=== PATIENT | male | born 1975 | race Caucasian/White ===

== ENCOUNTER 2023-04-23 02:53 | Inpatient (IN) | payer SELFPAY ==
[2023-04-23] MEDS ORDERED: LORazepam 2 MG/ML SYR.(CARPUJECT) ONE ×3 (03:27→11:46)
[2023-04-23] MEDS ORDERED: Haloperidol Lactate 5 MG/ML VIAL ONE (03:50)
[2023-04-23 03:54] LABS: #Monocytes 1.4 thou/uL (0.11-0.59); #Neutrophils 10.5 thou/uL (1.40-6.50); %Basophils 0.2 % (0.0-1.0); %Eosinophils 0.3 % (0.0-10.0); %Lymphocytes 4.7 % (21.0-51.0); %Monocytes 11.1 % (0.0-10.0); %Neutrophils 82.5 % (42.0-75.0); Hematocrit 40.3 % (42.0-52.0); Hemoglobin 15.1 g/dL (14.0-18.0); Mean Corpuscular HGB CONC 37.5 g/dL (32.0-36.0); Mean Corpuscular Hemoglobin 32.7 pg (27.0-31.0); Mean Corpuscular Volume 87.2 fl (78.0-98.0); Platelet Count 239 10x3/uL (130-400); RBC Distribution Width 12.7 % (11.5-14.5); Red Blood Cell (RBC) Count 4.62 mill/uL (4.70-6.10); White Blood Cell (WBC) Count 12.8 10x3/uL (4.8-10.8)
[2023-04-23] MEDS ORDERED: Aspirin Chewable 81 MG TAB ONE (05:10)
[2023-04-23 05:14] LABS: Bacteria/HPF None Seen HPF (None Seen); Bilirubin Negative (Negative); Blood, Urine Negative (Negative); CAUTI Indications for Culture Alt mental st,lethar; Clarity Clear (Clear); Glucose, Urine (Dipstick) Normal (Negative); Ketone, Urine 10 mg/dL (Negative); Leukocyte Negative Leu/uL (Negative); Nitrite Negative (Negative); Protein, Urine (Dipstick) Negative (Neg-Trace); RBC/HPF 0-3 HPF (0-3); Squamous Epithelial None Seen HPF (0-3); Urobilinogen Normal mg/dL (Less than 2); WBC/HPF 0-3 HPF (0-3); pH, Urine 5.5 (5.0-9.0)
[2023-04-23 05:21] LABS: Amphetamine Not Detected (NotDetected); Barbiturates Screen Not Detected (NotDetected); Benzodiazepine Screen Not Detected (NotDetected); Cocaine Metabolite Screen Not Detected (NotDetected); Methadone Not Detected (NotDetected); Methamphetamine Not Detected (NotDetected); Opiate Screen Not Detected (NotDetected); Oxycodone Screen Not Detected (NotDetected); Phencyclidine (PCP) Not Detected (NotDetected); THC/Cannabinoid Screen Not Detected (NotDetected); Tricyclic Screen Not Detected (NotDetected)
[2023-04-23 05:24] LABS: Urine Culture Reflex No No
[2023-04-23 05:29] LABS: Albumin 4.2 g/dL (3.5-5.0)
[2023-04-23 05:30] LABS: Chloride 77 mmol/L (98-107); Potassium 3.2 mmol/L (3.5-5.1); Sodium 120 mmol/L (136-145)
[2023-04-23 05:31] LABS: Calcium 9.5 mg/dL (7.8-10.44)
[2023-04-23 05:32] LABS: Globulin 3.3 g/dL (2.4-3.5); Glucose 66 mg/dL (70-105); Protein, Total 7.5 g/dL (6.0-8.3)
[2023-04-23 05:33] LABS: Anion Gap 26 mmol/L (10-20); Carbon Dioxide 20 mmol/L (22-29)
[2023-04-23 05:34] LABS: Bilirubin, Total 0.7 mg/dL (0.2-1.2)
[2023-04-23 05:35] LABS: Alkaline Phosphatase 49 U/L (40-110); Calc. Creatinine Clearance 0 mL/min (70-130); Estimated GFR 51
[2023-04-23 05:36] LABS: BUN (Urea Nitrogen) 26 mg/dL (8.9-20.6)
[2023-04-23 05:37] LABS: AST (SGOT) 33 U/L (5-34)
[2023-04-23 05:38] LABS: ALT (SGPT) 36 U/L (8-55); CK (CPK) 488 U/L (30-200)
[2023-04-23 05:40] LABS: Alcohol Less than 10.0 mg/dL (Less than 10)
[2023-04-23 05:43] LABS: Acetaminophen Less than 10 mcg/mL (10.0-30.0); Salicylate Less than 8.0 mg/dL (15.0-30.0)
[2023-04-23 06:48] LABS: CKMB 3.6 ng/mL (0-6.6)
[2023-04-23] MEDS ORDERED: Boostrix 0.5 ML (Tdap) VIAL (>/=7 yrs of age) ONE (06:54)
[2023-04-23] MEDS ORDERED: Magnesium 2 GM/50 ML BAG (IN WATER) ONE (06:54)
[2023-04-23] MEDS ORDERED: Potassium Chloride 20 MEQ TAB ONE (06:54)
[2023-04-23] MEDS ORDERED: Ondansetron PF 4 MG/2 ML Vial IVP PRN (08:24)
[2023-04-23 08:39] LABS: Troponin I 0.191 ng/mL (< 0.028)
[2023-04-23] MEDS ORDERED: Sodium Chloride 0.9% 1,000 ML IV SCH (09:45)
[2023-04-23 10:48] LABS: Anion Gap 22 mmol/L (10-20); BUN (Urea Nitrogen) 23 mg/dL (8.9-20.6); BUN (Urea Nitrogen) 24 mg/dL (8.9-20.6); Calc. Creatinine Clearance 45 mL/min (70-130); Calc. Creatinine Clearance 47 mL/min (70-130); Calcium 9.2 mg/dL (7.8-10.44); Calcium 9.5 mg/dL (7.8-10.44); Carbon Dioxide 20 mmol/L (22-29); Carbon Dioxide 23 mmol/L (22-29); Chloride 78 mmol/L (98-107); Chloride 79 mmol/L (98-107); Estimated GFR 60; Estimated GFR 63; Glucose 70 mg/dL (70-105); Glucose 72 mg/dL (70-105); Magnesium 2.9 mg/dL (1.6-2.6); Phosphorus 2.5 mg/dL (2.3-4.7); Potassium 2.8 mmol/L (3.5-5.1); Potassium 2.9 mmol/L (3.5-5.1); Sodium 120 mmol/L (136-145)
[2023-04-23 11:08] LABS: Sodium 118 mmol/L (136-145); Troponin I 0.206 ng/mL (< 0.028)
[2023-04-23 11:15] LABS: Creatinine, Urine 84.03 mg/dL (63-166); Sodium, Urine Less than 20 mmol/L (Not Available)
[2023-04-23] MEDS: Lorazepam 2 MG/ML VIAL SLOW IVP PRN (11:45)
[2023-04-23] MEDS ORDERED: Potassium Chloride 20 MEQ TAB PO SCH ×2 (13:00→16:00)
[2023-04-23 15:10] LABS: Anion Gap 24 mmol/L (10-20); BUN (Urea Nitrogen) 23 mg/dL (8.9-20.6); Calc. Creatinine Clearance 53 mL/min (70-130); Calcium 9.2 mg/dL (7.8-10.44); Carbon Dioxide 15 mmol/L (22-29); Chloride 83 mmol/L (98-107); Estimated GFR 72; Glucose 61 mg/dL (70-105); Potassium 3.4 mmol/L (3.5-5.1)
[2023-04-23 15:23] LABS: Sodium 119 mmol/L (136-145)
[2023-04-23] MEDS ORDERED: Sodium Chloride 3% 100 ML IVPB SCH (15:45)
[2023-04-23 20:06] LABS: Chloride 86 mmol/L (98-107); Potassium 3.3 mmol/L (3.5-5.1); Sodium 124 mmol/L (136-145)
[2023-04-23 20:07] LABS: Calcium 9.4 mg/dL (7.8-10.44); Glucose 60 mg/dL (70-105)
[2023-04-23 20:09] LABS: Anion Gap 26 mmol/L (10-20); Carbon Dioxide 15 mmol/L (22-29)
[2023-04-23 20:11] LABS: BUN (Urea Nitrogen) 23 mg/dL (8.9-20.6); Calc. Creatinine Clearance 57 mL/min (70-130); Estimated GFR 80
[2023-04-23 20:13] LABS: CK (CPK) 874 U/L (30-200)
[2023-04-23] MEDS: Potassium Chloride 40 MEQ in Dextrose 5%-Lactated Ringers 1,000 ML IV SCH (23:29)
[2023-04-24 00:26] VITALS: BMI 17.1
[2023-04-24 00:53] LABS: Anion Gap 22 mmol/L (10-20); BUN (Urea Nitrogen) 23 mg/dL (8.9-20.6); Calc. Creatinine Clearance 60 mL/min (70-130); Calcium 9.7 mg/dL (7.8-10.44); Carbon Dioxide 19 mmol/L (22-29); Chloride 87 mmol/L (98-107); Estimated GFR 85; Glucose 69 mg/dL (70-105); Sodium 124 mmol/L (136-145)
[2023-04-24] MEDS: Lorazepam 2 MG/ML VIAL SLOW IVP PRN ×2 (00:55→06:42)
[2023-04-24] MEDS: Potassium Chloride 40 MEQ in Dextrose 5%-Lactated Ringers 1,000 ML IV SCH ×2 (06:01→12:36)
[2023-04-24 07:17] LABS: #Monocytes 1.2 thou/uL (0.11-0.59); #Neutrophils 7.9 thou/uL (1.40-6.50); %Basophils 0.3 % (0.0-1.0); %Eosinophils 0.3 % (0.0-10.0); %Lymphocytes 6.9 % (21.0-51.0); Hematocrit 39.5 % (42.0-52.0); Mean Corpuscular HGB CONC 35.4 g/dL (32.0-36.0); Mean Corpuscular Hemoglobin 32.9 pg (27.0-31.0); Mean Corpuscular Volume 92.7 fl (78.0-98.0); Mean Platelet Volume 9.9 fL (7.4-10.4); Platelet Count 194 10x3/uL (130-400); RBC Distribution Width 13.2 % (11.5-14.5); Red Blood Cell (RBC) Count 4.26 mill/uL (4.70-6.10); White Blood Cell (WBC) Count 9.9 10x3/uL (4.8-10.8)
[2023-04-24 07:40] LABS: Anion Gap 21 mmol/L (10-20); BUN (Urea Nitrogen) 21 mg/dL (8.9-20.6); CK (CPK) 760 U/L (30-200); Calc. Creatinine Clearance 73 mL/min (70-130); Calcium 8.9 mg/dL (7.8-10.44); Carbon Dioxide 19 mmol/L (22-29); Chloride 91 mmol/L (98-107); Estimated GFR 105; Glucose 95 mg/dL (70-105); Potassium 3.7 mmol/L (3.5-5.1); Sodium 127 mmol/L (136-145)
[2023-04-24 10:23] LABS: Critical Call Chem Troponin I RESULT DECREASING; Troponin I 0.082 ng/mL (< 0.028)
[2023-04-24] MEDS ORDERED: Amlodipine 5 MG TAB PO SCH (17:00)
[2023-04-24 18:07] LABS: Anion Gap 14 mmol/L (10-20); BUN (Urea Nitrogen) 16 mg/dL (8.9-20.6); CK (CPK) 720 U/L (30-200); Calc. Creatinine Clearance 77 mL/min (70-130); Calcium 8.9 mg/dL (7.8-10.44); Carbon Dioxide 21 mmol/L (22-29); Chloride 95 mmol/L (98-107); Estimated GFR 107; Glucose 103 mg/dL (70-105); Potassium 3.9 mmol/L (3.5-5.1); Sodium 126 mmol/L (136-145)
[2023-04-25] MEDS: Potassium Chloride 40 MEQ in Dextrose 5%-Lactated Ringers 1,000 ML IV SCH ×4 (02:07→23:57)
[2023-04-25] MEDS: Metoprolol Tartrate 5 MG/5 ML VIAL IVP SCH ×2 (02:21→02:42)
[2023-04-25] MEDS: Amlodipine 5 MG TAB PO SCH (09:03)
[2023-04-25 12:36] LABS: Albumin 3.5 g/dL (3.5-5.0); Anion Gap 18 mmol/L (10-20); BUN (Urea Nitrogen) 10 mg/dL (8.9-20.6); BUN/Creatinine Ratio 13.33; CK (CPK) 509 U/L (30-200); Calc. Creatinine Clearance 86 mL/min (70-130); Calcium 9.3 mg/dL (7.8-10.44); Carbon Dioxide 21 mmol/L (22-29); Chloride 95 mmol/L (98-107); Estimated GFR 111; Glucose 94 mg/dL (70-105); Magnesium 1.6 mg/dL (1.6-2.6); Phosphorus 2.5 mg/dL (2.3-4.7); Potassium 4.9 mmol/L (3.5-5.1); Sodium 129 mmol/L (136-145)
[2023-04-25] MEDS ORDERED: Sodium Chloride 0.9% 1,000 ML IV SCH (17:30)
[2023-04-25] MEDS: Lorazepam 2 MG/ML VIAL SLOW IVP PRN (19:59)
[2023-04-25] MEDS ORDERED: Sodium Bicarbonate Tab 325 MG TAB PO SCH (21:00)
[2023-04-25] MEDS: Magnesium Oxide 400 MG TAB PO SCH (21:36)
[2023-04-26 04:45] LABS: Albumin 3.1 g/dL (3.5-5.0); Anion Gap 15 mmol/L (10-20); BUN (Urea Nitrogen) 8 mg/dL (8.9-20.6); BUN/Creatinine Ratio 10.81; CK (CPK) 395 U/L (30-200); Calc. Creatinine Clearance 87 mL/min (70-130); Calcium 9.1 mg/dL (7.8-10.44); Carbon Dioxide 21 mmol/L (22-29); Chloride 96 mmol/L (98-107); Estimated GFR 111; Glucose 89 mg/dL (70-105); Magnesium 1.3 mg/dL (1.6-2.6); Phosphorus 2.3 mg/dL (2.3-4.7); Potassium 3.9 mmol/L (3.5-5.1); Sodium 128 mmol/L (136-145)
[2023-04-26] MEDS ORDERED: Magnesium Sulfate In Water 4 GM in Premix Bag 1 BAG IVPB SCH (09:00)
[2023-04-26] MEDS: Potassium Chloride 40 MEQ in Dextrose 5%-Lactated Ringers 1,000 ML IV SCH ×4 (11:27→21:18)
[2023-04-26] MEDS: Amlodipine 5 MG TAB PO SCH (11:31)
[2023-04-26] MEDS: Lorazepam 2 MG/ML VIAL SLOW IVP PRN (11:33)
[2023-04-26] MEDS: Magnesium Oxide 400 MG TAB PO SCH ×2 (11:33→21:14)
[2023-04-26] MEDS: Sodium Bicarbonate Tab 325 MG TAB PO SCH ×3 (11:51→21:14)
[2023-04-26] MEDS ORDERED: OLANZapine 5 MG TAB PO SCH (14:15)
[2023-04-26] MEDS: Acetaminophen 325 MG TAB PO PRN ×2 (15:47→21:17)
[2023-04-26 23:07] LABS: Troponin I 0.016 ng/mL (< 0.028)
[2023-04-27 05:06] LABS: #Basophils 0.1 thou/uL (0.0-0.2); #Eosinphils 0.2 thou/uL (0.0-0.7); #Neutrophils 10.7 thou/uL (1.40-6.50); %Basophils 0.5 % (0.0-1.0); %Eosinophils 1.3 % (0.0-10.0); %Lymphocytes 6.6 % (21.0-51.0); %Monocytes 7.6 % (0.0-10.0); %Neutrophils 83.5 % (42.0-75.0); Hematocrit 32.3 % (42.0-52.0); Hemoglobin 11.3 g/dL (14.0-18.0); Mean Corpuscular Hemoglobin 33.1 pg (27.0-31.0); Mean Corpuscular Volume 94.7 fl (78.0-98.0); Mean Platelet Volume 10.3 fL (7.4-10.4); Platelet Count 170 10x3/uL (130-400); RBC Distribution Width 13.9 % (11.5-14.5); Red Blood Cell (RBC) Count 3.41 mill/uL (4.70-6.10); White Blood Cell (WBC) Count 12.8 10x3/uL (4.8-10.8)
[2023-04-27 05:32] LABS: Anion Gap 16 mmol/L (10-20); BUN (Urea Nitrogen) 7 mg/dL (8.9-20.6); CK (CPK) 362 U/L (30-200); Calc. Creatinine Clearance 88 mL/min (70-130); Calcium 8.7 mg/dL (7.8-10.44); Carbon Dioxide 19 mmol/L (22-29); Chloride 99 mmol/L (98-107); Estimated GFR 112; Glucose 83 mg/dL (70-105); Potassium 4.9 mmol/L (3.5-5.1); Sodium 129 mmol/L (136-145)
[2023-04-27] MEDS ORDERED: Lactated Ringer's 1,000 ML IV SCH (06:30)
[2023-04-27] MEDS: Sodium Bicarbonate Tab 325 MG TAB PO SCH ×3 (08:37→20:33)
[2023-04-27] MEDS: Amlodipine 5 MG TAB PO SCH (08:38)
[2023-04-27] MEDS: Magnesium Oxide 400 MG TAB PO SCH ×2 (08:38→20:33)
[2023-04-27] MEDS: OLANZapine 5 MG TAB PO SCH (08:38)
[2023-04-27] MEDS: Acetaminophen 325 MG TAB PO PRN (08:40)
[2023-04-27] MEDS ORDERED: Polyethylene Glycol 3350 17 GM Packet PO SCH (18:00)
[2023-04-27 18:03] LABS: Magnesium 1.8 mg/dL (1.6-2.6)
[2023-04-27] MEDS: Nicotine 14 MG PATCH TD SCH (18:28)
[2023-04-27] MEDS: Senokot S 8.6-50 MG TAB PO SCH (20:33)
[2023-04-28 04:53] LABS: #Basophils 0.1 thou/uL (0.0-0.2); #Eosinphils 0.1 thou/uL (0.0-0.7); #Monocytes 0.9 thou/uL (0.11-0.59); %Basophils 0.8 % (0.0-1.0); %Eosinophils 1.5 % (0.0-10.0); %Lymphocytes 10.3 % (21.0-51.0); %Monocytes 10.1 % (0.0-10.0); %Neutrophils 76.9 % (42.0-75.0); Hematocrit 34.2 % (42.0-52.0); Hemoglobin 11.6 g/dL (14.0-18.0); Mean Corpuscular HGB CONC 33.9 g/dL (32.0-36.0); Mean Corpuscular Hemoglobin 32.2 pg (27.0-31.0); Mean Platelet Volume 10.3 fL (7.4-10.4); Platelet Count 184 10x3/uL (130-400); RBC Distribution Width 13.8 % (11.5-14.5); White Blood Cell (WBC) Count 9.2 10x3/uL (4.8-10.8)
[2023-04-28 05:18] LABS: Anion Gap 14 mmol/L (10-20); BUN (Urea Nitrogen) 7 mg/dL (8.9-20.6); CK (CPK) 205 U/L (30-200); Calc. Creatinine Clearance 87 mL/min (70-130); Calcium 9.1 mg/dL (7.8-10.44); Carbon Dioxide 22 mmol/L (22-29); Chloride 97 mmol/L (98-107); Estimated GFR 111; Glucose 87 mg/dL (70-105); Potassium 4.4 mmol/L (3.5-5.1); Sodium 129 mmol/L (136-145)
[2023-04-28] MEDS: Sodium Chloride 1 GM TAB PO SCH ×3 (10:28→21:06)
[2023-04-28] MEDS: Magnesium Oxide 400 MG TAB PO SCH ×2 (10:29→21:06)
[2023-04-28] MEDS: Sodium Bicarbonate Tab 325 MG TAB PO SCH ×3 (10:29→21:06)
[2023-04-28] MEDS: Polyethylene Glycol 3350 17 GM Packet PO SCH (10:29)
[2023-04-28] MEDS: OLANZapine 5 MG TAB PO SCH (10:29)
[2023-04-28] MEDS: Senokot S 8.6-50 MG TAB PO SCH ×2 (10:29→21:06)
[2023-04-28] MEDS: Nicotine 14 MG PATCH TD SCH (21:05)
[2023-04-29 04:48] LABS: #Basophils 0.1 thou/uL (0.0-0.2); #Eosinphils 0.2 thou/uL (0.0-0.7); #Monocytes 1.3 thou/uL (0.11-0.59); #Neutrophils 6.4 thou/uL (1.40-6.50); %Basophils 1.4 % (0.0-1.0); %Eosinophils 1.7 % (0.0-10.0); %Lymphocytes 10.4 % (21.0-51.0); %Monocytes 14.7 % (0.0-10.0); %Neutrophils 71.1 % (42.0-75.0); Hemoglobin 11.4 g/dL (14.0-18.0); Mean Corpuscular HGB CONC 34.5 g/dL (32.0-36.0); Mean Corpuscular Hemoglobin 32.4 pg (27.0-31.0); Mean Corpuscular Volume 93.8 fl (78.0-98.0); Mean Platelet Volume 10.3 fL (7.4-10.4); Platelet Count 203 10x3/uL (130-400); RBC Distribution Width 13.9 % (11.5-14.5); Red Blood Cell (RBC) Count 3.52 mill/uL (4.70-6.10)
[2023-04-29 05:11] LABS: Anion Gap 13 mmol/L (10-20); BUN (Urea Nitrogen) 11 mg/dL (8.9-20.6); Calc. Creatinine Clearance 77 mL/min (70-130); Calcium 9.5 mg/dL (7.8-10.44); Carbon Dioxide 24 mmol/L (22-29); Chloride 97 mmol/L (98-107); Estimated GFR 107; Glucose 91 mg/dL (70-105); Potassium 4.4 mmol/L (3.5-5.1); Sodium 130 mmol/L (136-145)
[2023-04-29 07:27] VITALS: BP 127/71; TEMP 97.5
[2023-04-29] MEDS: Magnesium Oxide 400 MG TAB PO SCH (09:04)
[2023-04-29] MEDS: OLANZapine 5 MG TAB PO SCH (09:05)
[2023-04-29] MEDS: Sodium Bicarbonate Tab 325 MG TAB PO SCH (09:05)
[2023-04-29] MEDS: Sodium Chloride 1 GM TAB PO SCH (09:05)
[2023-04-29] MEDS: Polyethylene Glycol 3350 17 GM Packet PO SCH (09:06)
[2023-04-29] MEDS: Senokot S 8.6-50 MG TAB PO SCH (09:06)
== END 2023-04-29 10:40 | disposition short-term general hospital (02) | DRG 643 ==
LOC: ERS 02:53 → EDBD 02:53 → ERHOLD 06:54 → 2NO 18:25
PROVIDERS: ADMIT Student in an Organized Health Care Education/Training Program; ATTEND Internal Medicine
DX: E22.2 Syndrome of inappropriate secretion of antidiuretic hormone (principal); I21.A1 Myocardial infarction type 2; J93.9 Pneumothorax, unspecified; N17.9 Acute kidney failure, unspecified; M62.82 Rhabdomyolysis; G93.40 Encephalopathy, unspecified; R64 Cachexia; Z68.1 Body mass index [BMI] 19.9 or less, adult; R45.851 Suicidal ideations; E87.20 Acidosis, unspecified; I48.91 Unspecified atrial fibrillation; E86.0 Dehydration; R45.1 Restlessness and agitation; F19.10 Other psychoactive substance abuse, uncomplicated; E87.6 Hypokalemia; I10 Essential (primary) hypertension; E83.42 Hypomagnesemia; Z78.1 Physical restraint status
CPT/HCPCS: 36415; 36416; 51701; 70450; 71045; 71250; 72125; 76770; 80048; 80053; 80069; 80306; 80307; 81001; 82140; 82550; 82553; 82570; 83735; 83930; 83935; 84100; 84300; 84484; 85025; 87040; 87086; 90471; 90715; 93005; 93010; 93306; 94760; 96361; 96372; 96374; 96375; 96376; J1630; J1650; J2060; J3475; J3480; J7050; J7120; J7131